=== PATIENT | male | born 1985 | race African-American/Black ===

== ENCOUNTER 2024-03-31 13:09 | Emergency (ER) | payer OTHER ==
[~2024-03-31] VITALS: Ht 190.5 cm; Wt 95.3 kg
[2024-03-31] MEDS ORDERED: KETOROLAC TROMETHAMINE 60 MG VIAL IM ONE ×2 (14:30→14:31)
[2024-03-31 14:38] LABS: PH,URINE 5.5 (5.0-8.0); URINE APPEARANCE Clear; URINE BILIRRUBIN Negative (NEGATIVE); URINE BLOOD Negative; URINE COLOR Dark Yellow; URINE GLUCOSE Negative (NEGATIVE); URINE KETONE Trace (NEGATIVE); URINE LEUKOCYTE Negative; URINE NITRATE Negative; URINE PROTEIN Trace (NEGATIVE)
[2024-03-31 14:39] LABS: HEMATOCRIT 42.5 % (39.0-48.0); HEMOGLOBIN 14.2 g/dL (13-16.00); MEAN CELL VOLUME 73.1 fL (80.0-100.00); MEAN CORPUSCULAR HEMOGLOBIN 24.4 pg (27.00-32.0); MEAN CORPUSCULAR HGB CONC 33.3 g/dl (32.0-36.0); RED BLOOD COUNT 5.82 M/uL (4.00-6.00); RED CELL DISTRIBUTION WIDTH 14.5 % (11.5-14.5); URINE BACTERIA 11.3 uL (0.0-1933); URINE EPITHELIAL CELLS 10.5 uL (0.0-38.8); URINE RBC 3.9 uL (0.0-20.8)
[2024-03-31 14:41] LABS: PLATELET COUNT 125 K/uL (150-450)
[2024-03-31 14:44] LABS: URINE CAST 0.76 uL (0.0-1.40)
[2024-03-31 14:55] LABS: CALCIUM 8.7 mg/dL (8.5-10.1); CREATININE SERUM 1.44 mg/dL (0.70-1.30); GFR 55.51; POTASSIUM 3.62 mEq/L (3.5-5.1)
[2024-03-31] MEDS ORDERED: 0.9 % SODIUM CHLORIDE 1,000 ML IV ONE (15:30)
== END 2024-03-31 17:55 | disposition home or self-care (01) ==
LOC: ER 13:10
PROVIDERS: General Practice
DX: A90 Dengue fever [classical dengue] (principal); Z88.0 Allergy status to penicillin